=== PATIENT | female | born 1990 | race Hispanic/Latino ===

== ENCOUNTER 2024-06-27 11:54 | Day surgery (SDC) | payer OTHER ==
[2024-06-27 12:33] VITALS: BMI 25.7
[2024-06-27] MEDS ORDERED: Lactated Ringer's 1,000 ML IV SCH (13:15)
[2024-06-27 13:32] LABS: Fetal Membranes Rupture No Membranes Rupture (No Rupture)
== END 2024-06-27 14:51 | disposition home health service (06) ==
LOC: CSHLD/OP 11:54
PROVIDERS: ATTEND Obstetrics & Gynecology
DX: O47.03 False labor before 37 completed weeks of gestation, third trimester (principal); Z03.71 Encounter for suspected problem with amniotic cavity and membrane ruled out; O09.523 Supervision of elderly multigravida, third trimester; O99.013 Anemia complicating pregnancy, third trimester; O36.5930 Maternal care for other known or suspected poor fetal growth, third trimester, not applicable or unspecified; O98.813 Other maternal infectious and parasitic diseases complicating pregnancy, third trimester; B95.1 Streptococcus, group B, as the cause of diseases classified elsewhere; Z3A.35 35 weeks gestation of pregnancy; Z79.899 Other long term (current) drug therapy
CPT/HCPCS: 84112; 96360; 99285